=== PATIENT | female | born 1960 | race Caucasian/White ===

== ENCOUNTER 2022-07-01 12:16 | Outpatient (CLI) | payer BC | END 2022-07-01 12:17 | disposition home or self-care (01) | LOC: ULT 12:16 | PROVIDERS: ATTEND Internal Medicine | DX: Z51.11 Encounter for antineoplastic chemotherapy (principal); C83.34 Diffuse large B-cell lymphoma, lymph nodes of axilla and upper limb; I34.0 Nonrheumatic mitral (valve) insufficiency; Z79.899 Other long term (current) drug therapy | CPT/HCPCS: 93306 ==

== ENCOUNTER 2022-07-02 12:30 | Outpatient (CLI) | payer BC | END 2022-07-02 12:31 | disposition home or self-care (01) | LOC: PET 12:30 | PROVIDERS: ATTEND Radiology Radiation Oncology | DX: C83.34 Diffuse large B-cell lymphoma, lymph nodes of axilla and upper limb (principal); R93.3 Abnormal findings on diagnostic imaging of other parts of digestive tract | CPT/HCPCS: 78815; A9552 ==